=== PATIENT | female | born 1925 | race Caucasian/White ===

== ENCOUNTER 2016-06-27 19:24 | Emergency (ER) | payer MEDICARE ==
[2016-06-27 20:12] LABS: VENOUS BLOOD GAS BASE EXCESS 6.1 mmol/L (-2.0-2.0); VENOUS BLOOD GAS HCO3 31.4 mmol/L (22.0-27.0)
[2016-06-27 20:16] LABS: ABSOLUTE NEUTROPHIL COUNT 3.8 K/mm3 (1.8-7.7); BASO % 0.3 % (0.2-1.0); EOS # 0.1 (0.0-0.5); EOS % 2.3 % (0.9-2.9); HEMATOCRIT 34.6 % (37.0-47.0); IMM NEUT% 0.3 % (0-1); LYMPH # 1.3 (1.0-4.8); LYMPH % 22.6 % (15-45); MEAN CELL VOLUME 100.6 fl (81.0-99.0); MEAN CORPUSCULAR HGB CONC 31.8 g/dl (33.0-37.0); MONO # 0.5 (0.0-0.8); MONO % 9.4 % (4-12); NEUT % 65.1 % (43-75); PLATELET COUNT 222 K/mm3 (130-400); RED CELL DISTRIBUTION WIDTH 14.1 % (11.5-14.5)
[2016-06-27 20:40] LABS: ALB/GLOB RATIO 1.2 (>1.0); ALBUMIN 3.8 gm/dL (3.5-5.7); CALCIUM 9.5 mg/dL (8.6-10.3)
[2016-06-27 20:56] LABS: INR 1.23
--- NOTE | 2016-06-27 21:05 | RAD ---
CHEST-AP BEDSIDE COMPARISON: None HISTORY: Shortness of breath. FINDINGS: Views: Frontal chest. Lungs: Marked volume loss on the right from a large right pleural effusion. Heart and vessels: Atherosclerosis of the aorta. Trachea and bronchi: Normal Mediastinum and carlos: Normal Costophrenic sulci: Marked blunting of the right. Normal the left. Chest wall and bones: There is a pacemaker located on the right. Upper abdomen: Normal. IMPRESSION: Large right pleural effusion.
== END 2016-06-27 23:09 | disposition home or self-care (01) ==
LOC: ED 19:24
DX: J90 Pleural effusion, not elsewhere classified (principal); I50.9 Heart failure, unspecified; I48.91 Unspecified atrial fibrillation; E03.9 Hypothyroidism, unspecified; Z87.891 Personal history of nicotine dependence